=== PATIENT | female | born 1970 | race Caucasian/White ===

== ENCOUNTER 2018-11-21 14:24 | Emergency (ER) | payer BC, OTHER ==
[~2018-11-21] VITALS: Ht 157.5 cm; Wt 54.4 kg
[2018-11-21 14:31] VITALS: BP 142/73
== END 2018-11-21 16:10 | disposition home or self-care (01) ==
LOC: ER 14:28
DX: S52.612A Displaced fracture of left ulna styloid process, initial encounter for closed fracture (principal); S52.592A Other fractures of lower end of left radius, initial encounter for closed fracture; F41.9 Anxiety disorder, unspecified; W01.0XXA Fall on same level from slipping, tripping and stumbling without subsequent striking against object, initial encounter; Y93.89 Activity, other specified; Y92.89 Other specified places as the place of occurrence of the external cause; Y99.8 Other external cause status
CPT/HCPCS: 73110; A4606; Z7610